=== PATIENT | female | born 1980 | race Caucasian/White ===

== ENCOUNTER 2017-05-04 19:24 | Emergency (ER) | payer MEDICAID ==
[~2017-05-04] VITALS: Ht 152.4 cm; Wt 47.6 kg
[2017-05-04 20:30] VITALS: BP_SYST 126
== END 2017-05-04 22:30 | disposition left against medical advice (07) ==
LOC: SED 19:24
DX: R42 Dizziness and giddiness (principal); Z53.21 Procedure and treatment not carried out due to patient leaving prior to being seen by health care provider